=== PATIENT | female | born 1990 | race Caucasian/White ===

== ENCOUNTER 2020-10-12 17:56 | Emergency (ER) | payer MEDICAID ==
[~2020-10-12] VITALS: Ht 160 cm; Wt 73.9 kg
[2020-10-12 18:34] VITALS: BP 119/57
[2020-10-12 20:10] LABS: BASOPHILS # (AUTO) 0.1 K/uL (0.00-0.22); BASOPHILS % (AUTO) 0.9 % (0.0-2.0); EOSINOPHILS # (AUTO) 0.1 K/uL (0-0.4); EOSINOPHILS % (AUTO) 0.9 % (0.0-4.0); HEMATOCRIT 47.4 % (36-48); HEMOGLOBIN 16.1 g/dL (12.0-16.0); LYMPHOCYTES % (AUTO) 38.2 % (20.5-51.1); MEAN CORPUSCULAR HEMOGLOBIN 31 pg (27-31); MEAN CORPUSCULAR HGB CONC 34 g/dL (33-37); MEAN CORPUSCULAR VOLUME 90.3 fL (80-94); MONOCYTES # (AUTO) 0.9 K/uL (0.8-1.0); MONOCYTES % (AUTO) 10.8 % (1.7-9.3); NEUTROPHILS # (AUTO) 3.9 K/uL (1.8-7.7); NEUTROPHILS % (AUTO) 49.2 % (42.2-75.2); PLATELET COUNT (AUTO) 305 K/uL (140-450); RED BLOOD CELL COUNT(AUTO) 5.25 MIL/uL (4.20-5.40); RED CELL DISTRIBUTION WIDTH 12.7 % (11.6-13.7); WHITE BLOOD COUNT (AUTO) 7.9 K/uL (4.8-10.8)
[2020-10-12 20:38] LABS: ALBUMIN 3.8 g/dL (3.4-5.0); ANION GAP 13.5 (8-16); CARBON DIOXIDE 26.2 mmol/L (21-32); CREATININE 0.8 mg/dL (0.6-1.3); POTASSIUM 3.7 mmol/L (3.5-5.1); TOTAL BILIRUBIN 0.2 mg/dL (0.0-1.0)
[2020-10-12 21:53] LABS: APPEARANCE,URINE CLEAR (CLEAR); BILIRUBIN,URINE NEGATIVE (NEGATIVE); BLOOD, URINE NEGATIVE (NEGATIVE); COLOR,URINE YELLOW (YELLOW); LEUKOCYTE ESTERASE ,URINE NEGATIVE (NEGATIVE); NITRITE, URINE NEGATIVE (NEGATIVE); UGLUCOSE NEGATIVE (NEGATIVE)
--- NOTE | 2020-10-12 22:40 | NUR ---
PT UP FOR DISCHARGE AT THIS TIME. PT LEFT WITHOUT DISCHARGE INSTRUCTIONS.
== END 2020-10-12 22:40 | disposition home or self-care (01) ==
LOC: MED 17:56
DX: B34.9 Viral infection, unspecified (principal); Z20.822 Contact with and (suspected) exposure to COVID-19
CPT/HCPCS: 36415; 74022; 80053; 81003; 81025; 83690; 84703; 85025; 99284

== ENCOUNTER 2022-07-19 18:19 | Emergency (ER) | payer MEDICAID ==
[~2022-07-19] VITALS: Ht 162.6 cm; Wt 78.9 kg
[2022-07-19 18:26] VITALS: BP 123/86
--- NOTE | 2022-07-19 18:31 | NUR ---
pt ambulatory to [facility]
--- NOTE | 2022-07-19 20:30 | NUR ---
PT TAKEN TO BED 3
[2022-07-19 20:36] VITALS: BP 136/90
--- NOTE | 2022-07-19 20:40 | NUR ---
Received patient to ER w/ c/o cough causing patient to have chest pains, also c/o sinus, throat, and bilateral ear pain. Introduced self to patient, positioned for comfort. Bed to low position sr up, continue to monitor.
[2022-07-19] MEDS ORDERED: CODE118S PO (21:04)
[2022-07-19] MEDS ORDERED: IBUP-2213 PO (21:04)
--- NOTE | 2022-07-19 21:40 | NUR ---
Patient discharged with v/s stable. Written and verbal after care instructions given and explained. Patient alert, oriented and verbalized understanding of instructions. Ambulatory with steady gait. All questions addressed prior to discharge. ID band removed. Patient advised to follow up with PMD. Rx of GUAIFEN-CODEINE AND IBUPROFEN given. Opportunity to ask questions provided and answered.
== END 2022-07-19 21:40 | disposition home or self-care (01) ==
LOC: MED 18:19
DX: J06.9 Acute upper respiratory infection, unspecified (principal); Z79.899 Other long term (current) drug therapy
CPT/HCPCS: 93005; 99283